=== PATIENT | female | born 1950 | race Caucasian/White ===

== ENCOUNTER → 2019-06-03 09:20 | Outpatient (CLI) | payer OTHER, MEDICARE, SELFPAY ==
--- NOTE | 2019-06-03 | DI.MG.S_ITS ---
BILATERAL DIGITAL SCREENING MAMMOGRAM 3D/2D WITH CAD: 06/03/2019 CLINICAL: Routine screening. Comparison is made to exams dated: 03/10/2018 mammogram - [facility], 05/22/2017 mammogram, and 11/03/2012 mammogram - [facility]. The tissue of both breasts is heterogeneously dense. This may lower the sensitivity of mammography. Current study was also evaluated with a Computer Aided Detection (CAD) system. There are benign calcifications in both breasts. No significant masses, calcifications, or other findings are seen in either breast. There has been no significant interval change. IMPRESSION: There is no mammographic evidence of malignancy. A 1 year screening mammogram is recommended. This exam was interpreted at Station ID: [id number]. NOTE: For mammograms, a report in lay terms will be sent to the patient. Approximately 15% of breast malignancies will not be visualized mammographically. In the management of a palpable breast mass, a negative mammogram must not discourage biopsy of a clinically suspicious lesion. Electronically Signed By: Hugh goodrich/ana:06/03/2019 11:55:49 letter sent: Normal Exam ACR BI-RADS Category 2: Benign Finding(s) 3342F
== END ==
PROVIDERS: PCP Student in an Organized Health Care Education/Training Program; Visit Provider Student in an Organized Health Care Education/Training Program
DX: Z12.31 Encounter for screening mammogram for malignant neoplasm of breast (principal)
CPT/HCPCS: 77063; 77067

== ENCOUNTER → 2019-06-04 10:26 | Outpatient (CLI) | payer OTHER, MEDICARE, SELFPAY ==
--- NOTE | 2019-06-04 | DI.RAD.S_ITS ---
PROCEDURE: XR CHEST 2V INDICATIONS: SHORTNESS OF BREATH TECHNIQUE: 2 views of the chest were acquired. COMPARISON: CR, CHEST 2VW, 05/11/2007, 11:41. FINDINGS: Surgical changes and devices: None. Lungs and pleura: Lungs are clear. No pleural effusions or pneumothorax. Mediastinum: Mediastinal contours are normal. Heart size is normal. Bones and chest wall: Mild dextroscoliosis centered at the midthoracic level. No suspicious bony abnormalities. Soft tissues appear unremarkable. IMPRESSION: No acute cardiopulmonary disease. Dictated by: Winston Caro [facility] Interpreted: Moi Rodriguez MD on 06/04/2019 at 11:04 Approved by: Moi Rodriguez M.D. on 06/04/2019 at 12:20
== END ==
PROVIDERS: PCP Student in an Organized Health Care Education/Training Program; Visit Provider Student in an Organized Health Care Education/Training Program
DX: R06.02 Shortness of breath (principal)
CPT/HCPCS: 71046

== ENCOUNTER → 2019-06-21 07:46 | Outpatient (CLI) | payer OTHER, MEDICARE, SELFPAY ==
--- NOTE | 2019-06-21 | DI.ECHO.S_ITS ---
[place]---------+ [facility] +---------+ : : [address] : : : : [id number] : : : : Phone: [phone]+ Echocardiogram Report + + :Name: LUZ MARIA SALAZAR Study Date: 06/21/2019 Height: 64 in : :[facility] Weight: 196 lb : : Gender: Female BSA: 1.9 m2 : :: 1950 Age: 68 yrs BP: 152/90 mmHg: :Reason For Study: Murmur : : Performed By: Elizabeth Delaney : :Referring: BELKIS GRAVES : + + Interpretation Summary Normal left ventricle size with ejection fraction 60-65%. Borderline left atrial enlargement. Mild aortic valve sclerosis. Mild aortic regurgitation. Mild mitral annular calcification. Mild mitral regurgitation. Procedure: A two-dimensional transthoracic echocardiogram with color flow and Doppler was performed. The study quality was technically adequate. There is no prior echocardiogram noted for this patient. The patient was in normal sinus rhythm during the exam. Left Ventricle: The left ventricle is normal in size, wall thickness, and systolic function without any focal wall motion abnormalities. The ejection fraction is estimated to be 60-65%. Diastolic parameters suggest probable normal left ventricular diastolic function and normal filling pressures. Right Ventricle: The right ventricle grossly appears normal in size with probable normal systolic function. Atria: Borderline left atrial enlargement. Right atrial size is normal. The interatrial septum is intact with no evidence for an atrial septal defect. Mitral Valve: The mitral valve leaflets appear borderline thickened, but open well. There is mild mitral annular calcification. There is mild mitral regurgitation. Aortic Valve: The aortic valve is trileaflet. The aortic valve opens well. There is mild aortic valve sclerosis. There is mild aortic regurgitation. Tricuspid Valve: The tricuspid valve is normal in structure and function. There is trace tricuspid regurgitation. Pulmonic Valve: The pulmonic valve is not well seen, but is grossly normal. There is trace pulmonic regurgitation. Great Vessels: The aortic root is normal size. The ascending aorta is at the upper limits of normal in size. The aortic arch is at the upper limits of normal in size. The IVC is of normal diameter and collapses greater than 50% with a sniff. This suggests a low right atrial pressure of 3 mm Hg. Pericardium/ Pleura There is no pericardial effusion. There is no pleural effusion. MMode/2D Measurements & Calculations LVIDd: 4.3 cm Ao root diam: 3.5 cm LVIDs: 2.5 cm Aortic Jxn: 2.8 cm FS: 42.8 % asc Aorta Diam: 3.6 cm EPSS: 0.36 cm Ao Arch Diam (Prox Trans): 3.1 cm IVSd: 0.94 cm LVPWd: 0.64 cm LV abrams. diameter/BSA (cm/m^2): 2.2 LV sys. diameter/BSA (cm/m^2): 1.3 LA dimension: 4.1 cm RA long axis: 5.4 cm LA A2 area: 21.3 cm2 RA area: 17.7 cm2 LA A4 area: 19.4 cm2 RA vol: 49.2 ml LA length (vol): 5.3 cm RA : 25.4 ml/m2 LA vol: 66.2 ml IVC diam: 1.8 cm LA vol index: 34.1 ml/m2 RVDd major: 5.8 cm RVD1 (basal): 3.3 cm RVD2 (mid): 2.5 cm Doppler Measurements & Calculations Ao V2 max: 180.1 cm/sec AI P1/2t: 547.6 msec Ao V2 mean: 119.3 cm/sec AI dec slope: 234.9 cm/sec2 Ao max P.0 mmHg Ao mean P.9 mmHg Ao V2 VTI: 45.0 cm MV E max dayron: 65.2 cm/sec TR max dayron: 256.1 cm/sec MV A max dayron: 74.0 cm/sec TR max P.2 mmHg MV E/A: 0.88 PA V2 max: 83.9 cm/sec Med Peak E' Dayron: 5.2 cm/sec PA V2 mean: 54.9 cm/sec E/E' med: 12.6 PA mean P.4 mmHg Lat Peak E' Dayron: 4.9 cm/sec PA Accel Time: 0.17 sec E/E' lat: 13.2 E/e' average: 12.9 MV dec time: 0.25 sec MV P1/2t: 76.1 msec MR ERO: 0.10 cm2 MV P1/2t max dayron: 65.8 cm/sec MR flow rate: 49.5 cm3/sec MVA(P1/2t): 2.9 cm2 MR PISA radius: 0.45 cm Electronically signed by: Nancy Bermudez on Reading Physician:06/21/2019 02:21 PM
== END ==
PROVIDERS: PCP Student in an Organized Health Care Education/Training Program; Visit Provider Student in an Organized Health Care Education/Training Program
DX: R01.1 Cardiac murmur, unspecified (principal)
CPT/HCPCS: 93306

== ENCOUNTER → 2020-09-11 06:52 | Outpatient (CLI) | payer MEDICARE, OTHER, SELFPAY ==
--- NOTE | 2020-09-11 | DI.ECHO.S_ITS ---
[facility]---------+ [facility] +---------+ : : [address] : [address] : : : : [id number] : : : : Phone: [phone] : : [phone] +[phone]+ Echocardiogram Report + + :Name: LUZ MARIA SALAZAR Study Date: 09/11/2020 Height: 63.5 in: :[facility] Weight: 172 lb : : Gender: Female BSA: 1.8 m2 : :: 1950 Age: 69 yrs BP: 152/91 mmHg: :Reason For Study: MURMUR : :Ordering Physician: THANIA, : :JIM Performed By: Emma Damon : :Referring: JIM MONTEIRO : + + Interpretation Summary The left ventricle is normal in size. The ejection fraction is estimated to be 65-70%. The right ventricle is normal in size and function. There is mild mitral regurgitation. Compared to the prior echo study, there has been no change in the severity of mitral regurgitation. There is mild aortic regurgitation. Compared to the prior echo study, there has been no change in the severity of aortic regurgitation. The ascending aorta is mildly enlarged. The IVC is of normal diameter and collapses greater than 50% with a sniff. This suggests a low right atrial pressure of 3 mm Hg. A patent foramen ovale is suspected. Procedure: A two-dimensional transthoracic echocardiogram with color flow and Doppler was performed. The study quality was technically adequate. Comparison is made with the echocardiogram of 06/21/2019. The patient was in sinus rhythm with heart rates between 61-66 bpm during the exam. Left Ventricle: The left ventricle is normal in size. Proximal septal thickening is noted. There is no echo evidence for significant left ventricular outflow tract obstruction. There is no thrombus. The ejection fraction is estimated to be 65-70%. There are no focal wall motion abnormalities. MV E/A: 0.93 Med Peak E' Dayron: 5.6 cm/sec E/E' med: 13.9. Right Ventricle: The right ventricle is normal in size and function. Atria: The left atrium is moderately dilated. The left atrium has mildly increased in size since the prior echo exam. The right atrium is mildly dilated. The right atrium has mildly increased in size since the prior echo exam. A patent foramen ovale is suspected. Doppler evidence suggests a left to right interatrial shunt. The interatrial septum bows toward right atrium consistent with elevated left atrial pressure. Mitral Valve: There is mild to moderate mitral annular calcification. There is mild mitral regurgitation. Compared to the prior echo study, there has been no change in the severity of mitral regurgitation. Aortic Valve: There is mild aortic valve sclerosis. The aortic valve is mildly calcified. There is no aortic valve stenosis. There is mild aortic regurgitation. Compared to the prior echo study, there has been no change in the severity of aortic regurgitation. Tricuspid Valve: The tricuspid valve is normal in structure and function. There is trace tricuspid regurgitation. Pulmonary artery pressures cannot be estimated because of the lack of a measurable TR jet velocity but the IVC suggests a CVP of around 3 mmHg. Pulmonic Valve: The pulmonic valve is not well seen, but is grossly normal. There is trace pulmonic regurgitation. Great Vessels: The aortic root is normal size. The ascending aorta is mildly enlarged. The IVC is of normal diameter and collapses greater than 50% with a sniff. This suggests a low right atrial pressure of 3 mm Hg. Pericardium/ Pleura There is no pericardial effusion. There is no pleural effusion. MMode/2D Measurements & Calculations LVIDd: 3.9 cm LVOT diam: 2.1 cm LVIDs: 2.5 cm Ao root diam: 3.4 cm FS: 36.4 % asc Aorta Diam: 3.8 cm EPSS: 0.38 cm Ao Arch Diam (Prox Trans): 2.8 cm IVSd: 1.1 cm LVPWd: 0.94 cm LV abrams. diameter/BSA (cm/m^2): 2.1 LV sys. diameter/BSA (cm/m^2): 1.4 LA A2 area: 25.2 cm2 RA long axis: 5.9 cm LA A4 area: 20.2 cm2 RA area: 20.7 cm2 LA length (vol): 5.4 cm RA vol: 62.1 ml LA vol: 80.7 ml RA : 34.1 ml/m2 LA vol index: 44.2 ml/m2 IVC diam: 2.0 cm RVD1 (basal): 3.5 cm TAPSE: 2.3 cm Doppler Measurements & Calculations Ao V2 max: 191.9 cm/sec LVOT Max Dayron: 106.5 cm/sec Ao V2 mean: 138.6 cm/sec LV V1 max P.5 mmHg Ao max P.7 mmHg LV V1 VTI: 26.8 cm Ao mean P.6 mmHg MIGUEL(I,D): 1.8 cm2 Ao V2 VTI: 50.6 cm MIGUEL(V,D): 1.9 cm2 sev ratio: 0.53 MIGUEL indexed to BSA (cm^2/m^2): 0.99 AI P1/2t: 550.5 msec AI dec slope: 237.0 cm/sec2 MV E max dayron: 77.3 cm/sec PA V2 max: 85.5 cm/sec MV A max dayron: 83.6 cm/sec PA V2 mean: 49.0 cm/sec MV E/A: 0.93 PA mean P.2 mmHg Med Peak E' Dayron: 5.6 cm/sec PA pr(Accel): 10.5 mmHg E/E' med: 13.9 Lat Peak E' Dayron: 7.7 cm/sec E/E' lat: 10.0 E/e' average: 11.9 MV dec time: 0.20 sec SV(LVOT): 91.8 ml Reading Physician:02:49 PM
[2020-09-11 08:51] LABS: Add Manual Diff / Slide Review NO; Basophils Absolute Auto 0 /uL (0-100); Basophils Percent Auto 0.7 % (0-2); Eosinophils Absolute Auto 100 /uL (0-450); Eosinophils Percent Auto 1.3 % (2-4); Hematocrit 38.9 % (36-46); Lymphocytes Absolute Auto 1300 /uL (1100-4500); Lymphocytes Percent Auto 21.2 % (25-40); Mean Corpuscular HGB Conc 33.3 % (30-36); Mean Corpuscular Hemoglobin 29.5 PG (26-34); Mean Corpuscular Volume 88.7 fL (80-100); Monocytes Absolute Auto 300 /uL (0-900); Monocytes Percent Auto 5.3 % (3-14); Neutrophils Absolute Auto 4500 /uL (1500-7000); Neutrophils Percent Auto 71.5 % (50-75); Platelet Count 221 X10^3/uL (150-400); Red Blood Cell Count 4.39 X10^6/uL (4.0-5.2); Red Cell Distribution Width 14.2 % (11.6-14.8); White Blood Cell Count 6.3 X10^3/uL (4.5-11.0)
[2020-09-11 09:12] LABS: Alanine Aminotransferase 15 IU/L (<35); Albumin 4.1 g/dL (3.5-5.0); Albumin Globulin Ratio 1.3 (1.0-2.8); Alkaline Phosphatase 118 U/L (38-126); Aspartate Aminotransferase 29 IU/L (14-36); BUN Creatinine Ratio 30.6 (6-22); Bilirubin Total 0.5 mg/dL (0.2-1.3); Blood Urea Nitrogen 19 mg/dL (7-17); Calcium 9.4 mg/dL (8.4-10.2); Carbon Dioxide 28 mmol/L (22-32); Chloride 106 mmol/L (98-107); Cholesterol 240 mg/dL (140-199); Estimated Glomerular Filt Rate > 60.0 mL/min (>60); Globulin 3.2 g/dL (1.7-4.1); Glucose 113 mg/dL (80-110); HDL Cholesterol 49 mg/dL (40-60); HEMOLYSIS 20 (0-50); LDL Cholesterol Calculated 163 mg/dL (<100); Potassium 3.8 mmol/L (3.4-5.1); Sodium 137 mmol/L (137-145); Total Protein 7.3 g/dL (6.3-8.2); Triglycerides 140 mg/dL (35-150)
[2020-09-11 10:15] LABS: Thyroid Stimulating Hormone 0.984 uIU/mL (0.47-4.68)
[2020-09-11 15:42] LABS: Hep C Virus Ab w/Reflex Quant NEGATIVE s/c (NEGATIVE)
== END ==
PROVIDERS: PCP Student in an Organized Health Care Education/Training Program; Referring Provider Student in an Organized Health Care Education/Training Program; Visit Provider Internal Medicine Cardiovascular Disease
DX: R01.1 Cardiac murmur, unspecified (principal); I10 Essential (primary) hypertension; E78.5 Hyperlipidemia, unspecified; R42 Dizziness and giddiness
CPT/HCPCS: 36415; 80053; 80061; 84443; 85025; 86803; 93306

== ENCOUNTER → 2021-03-14 12:46 | Outpatient (CLI) | payer MEDICARE, OTHER, SELFPAY | PROVIDERS: PCP Student in an Organized Health Care Education/Training Program; Referring Provider Student in an Organized Health Care Education/Training Program; Visit Provider Student in an Organized Health Care Education/Training Program | DX: M85.851 Other specified disorders of bone density and structure, right thigh; Z78.0 Asymptomatic menopausal state; Z82.62 Family history of osteoporosis | CPT/HCPCS: 77080 ==

== ENCOUNTER 2021-04-10 17:47 | Emergency (ER) | payer MEDICARE, OTHER, SELFPAY ==
[2021-04-10] VITALS (18 sets, daily range): BP systolic 165–213; BP diastolic 70–120; PULSE 42–67; RESP 9–27; TEMP 36.7; O2SAT 96–99; BMI 31.8
--- NOTE | 2021-04-10 18:07 | DI.RAD.S_ITS ---
PROCEDURE: XR CHEST 2V INDICATIONS: Shortness of breath TECHNIQUE: 2 views of the chest were acquired. COMPARISON: [facility], CR, XR CHEST 2V, 06/04/2019, 10:42. FINDINGS: Surgical changes and devices: None. Lungs and pleura: Lungs are clear. No pleural effusions or pneumothorax. Mediastinum: Mediastinal contours are normal. Heart size is normal. Bones and chest wall: No suspicious bony abnormalities. Soft tissues appear unremarkable. IMPRESSION: No acute cardiopulmonary process demonstrated radiographically. Dictated by: Jose Grant M.D. on 04/10/2021 at 18:30 Approved by: Jose Grant M.D. on 04/10/2021 at 18:30
[2021-04-10 18:42] LABS: Add Manual Diff / Slide Review NO; Basophils Absolute Auto 100 /uL (0-100); Basophils Percent Auto 0.9 % (0-2); Eosinophils Absolute Auto 100 /uL (0-450); Eosinophils Percent Auto 1.7 % (2-4); Hematocrit 41.1 % (36-46); Hemoglobin 13.8 g/dL (12.0-16.0); Lymphocytes Absolute Auto 2100 /uL (1100-4500); Lymphocytes Percent Auto 29.7 % (25-40); Mean Corpuscular HGB Conc 33.6 % (30-36); Mean Corpuscular Volume 86.1 fL (80-100); Monocytes Absolute Auto 400 /uL (0-900); Monocytes Percent Auto 5.9 % (3-14); Neutrophils Absolute Auto 4400 /uL (1500-7000); Neutrophils Percent Auto 61.8 % (50-75); Platelet Count 247 X10^3/uL (150-400); Red Blood Cell Count 4.77 X10^6/uL (4.0-5.2); Red Cell Distribution Width 13.9 % (11.6-14.8); White Blood Cell Count 7.1 X10^3/uL (4.5-11.0)
[2021-04-10 19:00] LABS: Alanine Aminotransferase 18 IU/L (<35); Albumin 4.4 g/dL (3.5-5.0); Albumin Globulin Ratio 1.4 (1.0-2.8); Alkaline Phosphatase 143 U/L (38-126); Aspartate Aminotransferase 32 IU/L (14-36); BUN Creatinine Ratio 20.9 (6-22); Bilirubin Total 0.3 mg/dL (0.2-1.3); Blood Urea Nitrogen 14 mg/dL (7-17); Calcium 9.7 mg/dL (8.4-10.2); Carbon Dioxide 28 mmol/L (22-32); Chloride 105 mmol/L (98-107); Estimated Glomerular Filt Rate > 60.0 mL/min (>60); Globulin 3.2 g/dL (1.7-4.1); Glucose 103 mg/dL (80-110); HEMOLYSIS < 15 (0-50); Lactate (Lactic Acid) 0.9 mmol/L (0.7-2.1); Potassium 3.8 mmol/L (3.4-5.1); Sodium 142 mmol/L (137-145); Total Protein 7.6 g/dL (6.3-8.2)
[2021-04-10 19:07] LABS: NT-proBNP (BNP-Adult 18+) 308 pg/mL (<125)
[2021-04-10 19:09] LABS: D Dimer < 200 ng/mL (<230)
--- NOTE | 2021-04-10 19:17 | ED.SOB ---
HPI - SOB/Dyspnea General Chief Complaint: Shortness of Breath/Dyspnea Stated Complaint: SOB, HIGH BP, DR Bella sent over Time Seen by Provider: 04/10/21 18:08 Source: patient Mode of arrival: Ambulatory Limitations: no limitations History of Present Illness HPI Narrative: The patient arrives with complaints of dyspnea, started about 3:00 p.m. today. She has had intermittent similar symptoms over the past year, she is under the care of Dr. Francisco, cardiology. She underwent ECHO less than 1 years ago with a normal ejection fraction, no significant abnormalities. She has undergone Holter monitor surveillance without significant findings. She arrives with the complaints of dyspnea, no associated chest pain or palpitations. She has no orthopnea. She has no dizziness, near syncopal episodes. 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 Symptoms are resolved while here in the ER. It is noted that she is on medications for hypertension, but she reports her blood pressure been quite labile. Normally at home she is 120-130 systolic. Her blood pressure goes high. She has 213 systolic on arrival. She denies headache, visual changes, or chest pain. There is no dyspnea at this time. Related Data Home Medications Medication Instructions Recorded Confirmed cyclosporine [Restasis] #0 08/19/17 multivitamin [Multiple Vitamins] 1 tab PO QDAY #0 08/19/17 triamcinolone acetonide 1 garrett TOPICAL #0 08/19/17 cholecalciferol (vitamin D3) 4,000 unit PO #0 01/09/18 [Vitamin D3] Previous Rx's Medication Instructions Recorded trospium 20 mg tablet 20 mg PO BID #60 tab-cap 11/23/18 Allergies Allergy/AdvReac Type Severity Reaction Status Date / Time meperidine [From DEMEROL] Allergy Unknown Verified 04/10/21 18:03 morphine [MORPHINE] Allergy Unknown Verified 04/10/21 18:03 Review of Systems Constitutional Constitutional: Denies chills, Denies fatigue and Denies fever(s) Eyes Eyes: Denies change in vision ENT Ears, Nose, Mouth, and Throat: Denies vertigo, Denies dizziness, Denies sinus pain and Denies sore throat Comments: No headache Cardiovascular Cardiovascular: Denies chest pain, Denies syncope, Denies pedal edema and Reports dyspnea Respiratory Respiratory: Denies chest congestion, Denies cough and Reports dyspnea Gastrointestinal Gastrointestinal: Denies abdominal pain, Denies change in bowel habits, Denies diarrhea, Denies nausea and Denies vomiting Musculoskeletal Musculoskeletal: Denies back pain and Denies arthralgias Comments: no edema Integumentary/Breasts Skin/Breast: Denies rash Neurologic Neurologic: Denies vertigo, Denies dizziness and Denies syncope Psychiatric Psychiatric: Denies anxiety Endocrine Endocrine: Denies fatigue Patient History Medical History (Updated 04/10/21 @ 22:20 by Hugh Morse MD) Hypertension Surgical History Status post dilation and curettage Social History Smoking Status: Unknown if ever smoked Smoking Status: Unknown if ever smoked alcohol intake frequency: holidays/special occasions only Substance Use Type: does not use Exam Initial Vital Signs Initial Vital Signs: Vital Signs Temperature 98.1 F 04/10/21 17:55 Pulse Rate 59 L 04/10/21 17:55 Respiratory Rate 15 04/10/21 17:55 Blood Pressure 213/93 H 04/10/21 17:55 Pulse Oximetry 97 04/10/21 17:55 Const General: cooperative, healthy appearing and comfortable [facility] Head: normocephalic and atraumatic Mouth: oral mucosae normal Eyes Pupils: PERRL EOM: EOM intact bilaterally Neck Neck: No JVD Resp Effort & Inspection: normal respiratory effort and able to speak in complete sentences Auscultation: clear to auscultation bilaterally, no rales, no rhonchi and no wheezes Cardio Rate: bradycardic Rhythm: regular rhythm Heart Sounds: S1 normal and S2 normal GI Inspection: non-distended Palpation: soft, no hepatosplenomegaly, No guarding, No pulsatile mass and No tender Auscultation: normal bowel sounds Back/Spine/Pelvis Back: normal to inspection Skin General: no rashes or lesions noted Neuro General: patient alert, patient oriented x3, gait normal and no focal motor deficits Speech: speech normal Extrem General: no pedal edema and no calf tenderness Psych Appearance: grossly normal and well kempt Course Course Course Narrative: the patient's blood pressure improved without intervention. I discussed her EKG with Cardiology, Dr. Hector. The frequent PVCs are noted. It is specifically noted there is no pathologic block. The PVCs may be associated with the beta-irma use. Follow-up with her shaker plate operator tomorrow as recommended. Orders Ordered: ED Orders 04/10/21 18:07 XR chest 2V Stat Measure peak expiratory flow ONCE RT Consult Eval and Treat Now 04/10/21 18:30 Complete Blood Count AUTO DIFF Stat Comprehensive Metabolic Panel Stat D Dimer Stat Lactate (Lactic Acid) Stat NT-proBNP (BNP-Adult 18+) Stat Troponin & CK Cardiac Panel Stat 04/10/21 20:17 EKG-12 Lead Stat Vital Signs Vital signs: Vital Signs - 8 hr 04/10/21 17:55 04/10/21 18:22 04/10/21 18:30 Temperature 98.1 F Pulse Rate 59 L 54 L 67 Respiratory Rate 15 23 Blood Pressure 213/93 H 203/119 H 200/120 H Pulse Oximetry 97 96 97 04/10/21 19:00 04/10/21 19:01 04/10/21 19:30 Temperature Pulse Rate 48 L 48 L 50 L Respiratory Rate 11 L 9 L 12 Blood Pressure 174/79 H Pulse Oximetry 99 98 98 04/10/21 19:31 04/10/21 20:00 04/10/21 20:01 Temperature Pulse Rate 58 L 50 L 57 L Respiratory Rate 22 13 19 Blood Pressure 165/76 H 179/79 H Pulse Oximetry 98 98 98 04/10/21 20:30 04/10/21 20:31 Temperature Pulse Rate 48 L 48 L Respiratory Rate 27 H 21 Blood Pressure 178/77 H Pulse Oximetry 98 98 MDM - SOB/Dyspnea Lab Data Result diagrams: 04/10/21 18:30 04/10/21 18:30 Labs: Lab Results 04/10/21 04/10/21 04/10/21 Range/Units 18:30 18:30 18:30 WBC 7.1 (4.5-11.0) X10^3/uL RBC 4.77 (4.0-5.2) X10^6/uL Hgb 13.8 (12.0-16.0) g/dL Hct 41.1 (36-46) % MCV 86.1 (80-100) fL MCH 29.0 (26-34) PG MCHC 33.6 (30-36) % RDW 13.9 (11.6-14.8) % Plt Count 247 (150-400) X10^3/uL Neut % (Auto) 61.8 (50-75) % Lymph % (Auto) 29.7 (25-40) % [place] % (Auto) 5.9 (3-14) % Eos % (Auto) 1.7 L (2-4) % Baso % (Auto) 0.9 (0-2) % Neut # (Auto) 4400 (1272-6567) /uL Lymph # (Auto) 2100 (0883-4648) /uL [place] # (Auto) 400 (0-900) /uL Eos # (Auto) 100 (0-450) /uL Baso # (Auto) 100 (0-100) /uL D-Dimer (<230) ng/mL Sodium 142 (137-145) mmol/L Potassium 3.8 (3.4-5.1) mmol/L Chloride 105 (98-107) mmol/L Carbon Dioxide 28 (22-32) mmol/L BUN 14 (7-17) mg/dL Creatinine 0.67 (0.52-1.04) mg/dL Estimated GFR > 60.0 (>60) mL/min BUN/Creatinine Ratio 20.9 (6-22) Glucose 103 (80-110) mg/dL Lactate 0.9 (0.7-2.1) mmol/L Calcium 9.7 (8.4-10.2) mg/dL Total Bilirubin 0.3 (0.2-1.3) mg/dL AST 32 (14-36) IU/L ALT 18 (<35) IU/L Alkaline Phosphatase 143 H (38-126) U/L Total Creatine Kinase (30-135) U/L CK-MB (CK-2) CK-MB (CK-2) Rel Index Troponin I (0.01-0.034) ng/mL NT-Pro-B Natriuret Pep (<125) pg/mL Total Protein 7.6 (6.3-8.2) g/dL Albumin 4.4 (3.5-5.0) g/dL Globulin 3.2 (1.7-4.1) g/dL Albumin/Globulin Ratio 1.4 (1.0-2.8) 04/10/21 04/10/21 04/10/21 Range/Units 18:30 18:30 18:30 WBC (4.5-11.0) X10^3/uL RBC (4.0-5.2) X10^6/uL Hgb (12.0-16.0) g/dL Hct (36-46) % MCV (80-100) fL MCH (26-34) PG MCHC (30-36) % RDW (11.6-14.8) % Plt Count (150-400) X10^3/uL Neut % (Auto) (50-75) % Lymph % (Auto) (25-40) % [place] % (Auto) (3-14) % Eos % (Auto) (2-4) % Baso % (Auto) (0-2) % Neut # (Auto) (1267-5296) /uL Lymph # (Auto) (8620-2308) /uL [place]ock[place] # (Auto) (0-900) /uL Eos # (Auto) (0-450) /uL Baso # (Auto) (0-100) /uL D-Dimer < 200 (<230) ng/mL Sodium (137-145) mmol/L Potassium (3.4-5.1) mmol/L Chloride (98-107) mmol/L Carbon Dioxide (22-32) mmol/L BUN (7-17) mg/dL Creatinine (0.52-1.04) mg/dL Estimated GFR (>60) mL/min BUN/Creatinine Ratio (6-22) Glucose (80-110) mg/dL Lactate (0.7-2.1) mmol/L Calcium (8.4-10.2) mg/dL Total Bilirubin (0.2-1.3) mg/dL AST (14-36) IU/L ALT (<35) IU/L Alkaline Phosphatase (38-126) U/L Total Creatine Kinase 65 (30-135) U/L CK-MB (CK-2) TNP CK-MB (CK-2) Rel Index TNP Troponin I < 0.012 (0.01-0.034) ng/mL NT-Pro-B Natriuret Pep 308 H (<125) pg/mL Total Protein (6.3-8.2) g/dL Albumin (3.5-5.0) g/dL Globulin (1.7-4.1) g/dL Albumin/Globulin Ratio (1.0-2.8) Imaging Data Chest x-ray: Radiologist's Impression: No acute findings. ECG Data Attestation: I personally reviewed and interpreted this ECG as follows: ( EKG 1. : Normal sinus rhythm with frequent PACs. Rate 61 beats per minute. Possible early. Normal intervals, no acute ST changes. EKG 2. Sinus bradycardia rate 54 with PACs. No significant change from EKG 1.) Discharge Plan Departure Patient Disposition: Home Clinical Impression: Bradycardia Hypertension Qualifiers: Hypertension type: essential hypertension Qualified Code(s): I10 - Essential (primary) hypertension Activity Restrictions/Additional Instructions: contact Dr. Francisco tomorrow regarding your symptoms today and your ER visit. Your blood pressure upon discharge was 165 systolic. your heart rate is in the 50s. He may want to further adjust to medications. Return to ER if you develop significant chest pain, problems breathing, dizziness, or headache. Prescriptions: No Action multivitamin [Multiple Vitamins] 1 EACH tablet 1 tab PO QDAY Qty: 0 RF: 0 triamcinolone acetonide 0.1 % ointment 1 garrett Topical Qty: 0 RF: 0 cyclosporine [Restasis] 1 EACH dropperette Qty: 0 RF: 0 cholecalciferol (vitamin D3) [Vitamin D3] 4,000 UNIT capsule 4,000 unit PO Qty: 0 RF: 0 trospium 20 mg tablet 20 mg PO BID Qty: 60 RF: 2 Referrals: Ashlie Bella MD [Primary Care Provider] -
[2021-04-10 19:37] LABS: Creatine Kinase 65 U/L (30-135)
[2021-04-10 19:49] LABS: Troponin I < 0.012 ng/mL (0.01-0.034)
== END 2021-04-10 22:47 | disposition home or self-care (01) ==
PROVIDERS: Emergency Provider Emergency Medicine; PCP Student in an Organized Health Care Education/Training Program
DX: R00.1 Bradycardia, unspecified (principal); I10 Essential (primary) hypertension; R06.02 Shortness of breath
CPT/HCPCS: 36415; 71046; 80053; 82550; 83605; 83880; 84484; 85025; 85379; 93005; 93010; 99284

== ENCOUNTER → 2021-05-08 16:53 | Outpatient (CLI) | payer MEDICARE, OTHER, SELFPAY ==
[2021-05-08 18:15] LABS: BUN Creatinine Ratio 31.7 (6-22); Blood Urea Nitrogen 20 mg/dL (7-17); Calcium 9.6 mg/dL (8.4-10.2); Carbon Dioxide 28 mmol/L (22-32); Chloride 105 mmol/L (98-107); Estimated Glomerular Filt Rate > 60.0 mL/min (>60); Glucose 103 mg/dL (80-110); HEMOLYSIS < 15 (0-50); Magnesium 2.1 mg/dL (1.6-2.3); Potassium 3.9 mmol/L (3.4-5.1); Sodium 140 mmol/L (137-145)
[2021-05-08 18:46] LABS: Thyroid Stimulating Hormone 0.812 uIU/mL (0.47-4.68)
== END ==
PROVIDERS: PCP Student in an Organized Health Care Education/Training Program; Referring Provider Internal Medicine Cardiovascular Disease; Visit Provider Internal Medicine Cardiovascular Disease
DX: I10 Essential (primary) hypertension (principal)
CPT/HCPCS: 36415; 80048; 83735; 84443

== ENCOUNTER → 2021-07-28 10:55 | Outpatient (CLI) | payer MEDICARE, OTHER, SELFPAY ==
--- NOTE | 2021-07-28 | DI.MG.S_ITS ---
BILATERAL DIGITAL SCREENING MAMMOGRAM 3D/2D WITH CAD: 07/28/2021 CLINICAL: Routine screening. Comparison is made to exams dated: 06/03/2019 mammogram, 03/10/2018 mammogram - [facility], and 05/22/2017 mammogram - [facility]. The tissue of both breasts is heterogeneously dense. This may lower the sensitivity of mammography. Current study was also evaluated with a Computer Aided Detection (CAD) system. There are benign calcifications in both breasts. No significant masses, calcifications, or other findings are seen in either breast. There has been no significant interval change. IMPRESSION: BENIGN There is no mammographic evidence of malignancy. A 1 year screening mammogram is recommended. This exam was interpreted at Station ID: [id number]. NOTE: For mammograms, a report in lay terms will be sent to the patient. Approximately 15% of breast malignancies will not be visualized mammographically. In the management of a palpable breast mass, a negative mammogram must not discourage biopsy of a clinically suspicious lesion. Electronically Signed By: Hugh goodrich/ana:07/30/2021 07:57:20 letter sent: Normal Exam ACR BI-RADS Category 2: Benign Finding(s) 3342F
== END ==
PROVIDERS: PCP Student in an Organized Health Care Education/Training Program; Referring Provider Student in an Organized Health Care Education/Training Program; Visit Provider Student in an Organized Health Care Education/Training Program
DX: Z12.31 Encounter for screening mammogram for malignant neoplasm of breast (principal)
CPT/HCPCS: 77063; 77067

== ENCOUNTER → 2021-08-15 13:39 | Outpatient (CLI) | payer MEDICARE, OTHER, SELFPAY ==
--- NOTE | 2021-08-15 | DI.ECHO.S_ITS ---
[facility] +---------+ : : [address] : [address] : : : : [phone] : : : : Phone: [phone]---------+ Echocardiogram Report + + :Name: LUZ MARIA SALAZAR Study Date: 08/15/2021 Height: 63 in : :[facility] ReadingLocation: Weight: 175 lb : : Gender: Female BSA: 1.8 m2 : :: 1950 Age: 70 yrs BP: 167/97 mmHg: :Reason For Study: ATRIOVENTIRUCLAR BLOCK, SECOND DEGREE : :Ordering Physician: Yemi GARCIAformed By: Emma Damon : :Referring: DANE GARCIA : + + Interpretation Summary The left ventricle is normal in size. The ejection fraction is estimated to be 70-75%. The left ventricle is mildly hyperdynamic. No significant LV outflow tract obstruction. There has been no significant change since the previous exam. The right ventricle is mildly dilated. The right ventricular systolic function is normal. There is a pacemaker lead in the right ventricle. Pacemaker lead is new. The aortic valve is moderately calcified. There is mildly reduced leaflet mobility. The peak aortic velocity is 2.4 m/sec. The aortic valve mean gradient is 12.5 mmHg. The peak aortic velocity on the previous exam was 2.14 m/sec. The calculated aortic valve area is 1.7 cm2. There is mild aortic stenosis. Procedure: A two-dimensional transthoracic echocardiogram with color flow and Doppler was performed. The study quality was technically adequate. Comparison is made with the echocardiogram of 04/13/2021. The patient has a paced rhythm. The heart rate ranged between 66-78 bpm during the study. Left Ventricle: The left ventricle is normal in size. Proximal septal thickening is noted. There is no echo evidence for significant left ventricular outflow tract obstruction. There is no thrombus. The ejection fraction is estimated to be 70-75%. The left ventricle is mildly hyperdynamic. There has been no significant change since the previous exam. Septal motion is consistent with conduction abnormality. MV E/A: 0.67 Med Peak E' Dayron: 5.1 cm/sec E/E' med: 12.8. Right Ventricle: The right ventricle is mildly dilated. There is a pacemaker lead in the right ventricle. The right ventricular systolic function is normal. Atria: The left atrium is mildly dilated. The left atrium has mildly increased in size since the prior echo exam. There is a catheter/pacemaker lead seen in the right atrium. The right atrium is normal in size. There is no Doppler evidence for an interatrial shunt. The atrial septum is aneurysmal. Mitral Valve: There is moderate mitral annular calcification. There is systolic anterior motion of the chordal apparatus. The mitral valve mean gradient is 2 mmHg. No significant mitral valve stenosis. There has been no significant change since the previous study. There is mild mitral regurgitation. Aortic Valve: The aortic valve is trileaflet. The aortic valve is moderately calcified. There is mildly reduced leaflet mobility. The peak aortic velocity is 2.4 m/sec. The aortic valve mean gradient is 12.5 mmHg. The calculated aortic valve area is 1.7 cm2. The peak aortic velocity on the previous exam was 2.14 m/sec. There is mild aortic stenosis. There is mild aortic regurgitation. Compared to the prior echo study, there has been no change in the severity of aortic regurgitation. Tricuspid Valve: The tricuspid valve is not well visualized, but is grossly normal. There is mild tricuspid regurgitation. Pulmonary artery pressures cannot be estimated because of the lack of a measurable TR jet velocity but the IVC suggests a CVP of around 3 mmHg. Compared to the prior echo exam, there has been no change in TR severity. Pulmonic Valve: The pulmonic valve leaflets are thin and pliable; valve motion is normal. There is trace pulmonic regurgitation. Great Vessels: The aortic root is normal size. The ascending aorta is at the upper limits of normal in size. Mild atherosclerotic plaque(s) in the aortic arch. The IVC is of normal diameter and collapses greater than 50% with a sniff. This suggests a low right atrial pressure of 3 mm Hg. Pericardium/ Pleura There is no pericardial effusion. There is no pleural effusion. MMode/2D Measurements & Calculations LVIDd: 4.8 cm LVOT diam: 2.2 cm LVIDs: 3.0 cm Ao root diam: 3.3 cm FS: 36.7 % asc Aorta Diam: 3.6 cm IVSd: 0.66 cm Ao Arch Diam (Prox Trans): 3.2 cm LVPWd: 0.83 cm LV abrams. diameter/BSA (cm/m^2): 2.6 LV sys. diameter/BSA (cm/m^2): 1.6 LA A2 area: 23.1 cm2 RA long axis: 5.0 cm LA A4 area: 17.0 cm2 RA area: 14.8 cm2 LA length (vol): 5.0 cm RA vol: 36.9 ml LA vol: 67.4 ml RA : 20.2 ml/m2 LA vol index: 36.9 ml/m2 IVC diam: 1.7 cm RVD1 (basal): 4.4 cm TAPSE: 2.3 cm Doppler Measurements & Calculations Ao V2 max: 242.7 cm/sec LVOT Max Dayron: 105.4 cm/sec Ao V2 mean: 168.7 cm/sec LV V1 max P.4 mmHg Ao max P.6 mmHg LV V1 VTI: 26.6 cm Ao mean P.5 mmHg MIGUEL(I,D): 1.9 cm2 Ao V2 VTI: 52.3 cm MIGUEL(V,D): 1.7 cm2 sev ratio: 0.51 MIGUEL indexed to BSA (cm^2/m^2): 1.1 AI P1/2t: 696.6 msec AI dec slope: 158.9 cm/sec2 MV E max dayron: 65.5 cm/sec PA V2 max: 106.5 cm/sec MV A max dayron: 97.3 cm/sec PA V2 mean: 73.5 cm/sec MV E/A: 0.67 PA mean P.4 mmHg Med Peak E' Dayron: 5.1 cm/sec PA pr(Accel): 36.2 mmHg E/E' med: 12.8 Lat Peak E' Dayron: 8.2 cm/sec E/E' lat: 8.0 E/e' average: 10.4 MV dec time: 0.28 sec MVA(VTI): 3.4 cm2 MV V2 mean: 65.4 cm/sec SV(LVOT): 101.2 ml MV mean P.0 mmHg MV V2 VTI: 30.1 cm Reading Physician:12:24 PM
== END ==
PROVIDERS: PCP Student in an Organized Health Care Education/Training Program; Referring Provider Internal Medicine Cardiovascular Disease; Visit Provider Internal Medicine Cardiovascular Disease
DX: I08.3 Combined rheumatic disorders of mitral, aortic and tricuspid valves (principal); I70.0 Atherosclerosis of aorta; I44.1 Atrioventricular block, second degree; Z95.0 Presence of cardiac pacemaker
CPT/HCPCS: 93306

== ENCOUNTER → 2022-11-14 09:54 | Outpatient (CLI) | payer MEDICARE, OTHER, SELFPAY ==
--- NOTE | 2022-11-14 | DI.MG.S_ITS ---
BILATERAL DIGITAL SCREENING MAMMOGRAM 3D/2D WITH CAD: 11/14/2022 CLINICAL: Routine screening. Comparison is made to exams dated: 07/28/2021 mammogram, 06/03/2019 mammogram, 03/10/2018 mammogram - [facility], 05/22/2017 mammogram, and 11/03/2012 mammogram - [facility]. Both breasts are heterogeneously dense, which may obscure small masses (category c / 51-75% glandular tissue). Current study was also evaluated with a Computer Aided Detection (CAD) system. There is a possible new asymmetry in the right breast at 10 o'clock middle depth. No other significant masses, calcifications, or other findings are seen in either breast. IMPRESSION: INCOMPLETE: NEEDS ADDITIONAL IMAGING EVALUATION The possible new asymmetry in the right breast is indeterminate. Additional views with possible ultrasound are recommended. Based on the Tyrer Cuzick model (a risk assessment model) the patient's lifetime risk is 6.7% and her 10 year risk is 5.0%. According to the ACR, ACS, and NCCN guidelines, an annual breast MRI exam along with mammogram is recommended if the patient's lifetime risk is 20% or greater. This exam was interpreted at Station ID: [id number]. NOTE: For mammograms, a report in lay terms will be sent to the patient. Approximately 15% of breast malignancies will not be visualized mammographically. In the management of a palpable breast mass, a negative mammogram must not discourage biopsy of a clinically suspicious lesion. Electronically Signed By: Jose Grant M.D., jr/ana:11/14/2022 13:38:17 letter sent: Additional Imaging Needed ACR BI-RADS Category 0: Incomplete 3340F
--- NOTE | 2022-11-14 | DI.US.S_ITS ---
PROCEDURE: US ABDOMEN COMPLETE INDICATIONS: Abnormal levels of other serum enzymes TECHNIQUE: Real-time scanning was performed of the abdominal and retroperitoneal organs, with image documentation. COMPARISON: None. FINDINGS: Liver: The liver is normal in size and demonstrates no suspicious lesions. There is an 11 mm anechoic, benign-appearing hepatic cyst seen within the left lobe of the liver. Gallbladder: No findings of gallstones or sludge are seen. The gallbladder wall is not thickened, measuring 3 mm or less. No specific pericholecystic fluid is seen. The sonographic Roldan sign is negative. Biliary ducts: Intrahepatic bile ducts are non-dilated. Extrahepatic bile duct caliber measures 5 mm. Normal is 6-7 mm or less in diameter, or 10 mm or less post-cholecystectomy. Pancreas: Visualized portions of the pancreas are sonographically normal. Spleen: Spleen is normal in size and homogeneous in echotexture. Kidneys: Kidneys are normal in size and echotexture. Right kidney measures 9.6 cm long; left kidney measures 9.4 cm long. No hydronephrosis or nephrolithiasis. No solid masses. Aorta: Visualized aorta is normal in caliber at less than 3 cm. Iliacs: Proximal common iliac arteries are normal in caliber at less than 2.5 cm. IVC: Intrahepatic inferior vena cava is patent. Miscellaneous: No free abdominal fluid. IMPRESSION: Normal appearing liver, with incidental note made an 11 mm anechoic cyst on the left. The gallbladder demonstrates a normal sonographic appearance. No biliary dilatation is seen. Dictated by: Rik Sanders M.D. on 11/14/2022 at 16:29 Approved by: Rik Sanders M.D. on 11/14/2022 at 16:30
== END ==
PROVIDERS: PCP Family Medicine; Referring Provider Internal Medicine; Visit Provider Internal Medicine
DX: Z12.31 Encounter for screening mammogram for malignant neoplasm of breast (principal); R74.8 Abnormal levels of other serum enzymes; K76.89 Other specified diseases of liver
CPT/HCPCS: 76700; 77063; 77067

== ENCOUNTER → 2022-12-10 08:47 | Outpatient (CLI) | payer MEDICARE, OTHER, SELFPAY ==
--- NOTE | 2022-12-10 | DI.MG.S_ITS ---
UNILATERAL RIGHT DIGITAL DIAGNOSTIC MAMMOGRAM 3D/2D WITH ADDITIONAL VIEWS: 12/10/2022 CLINICAL: Additional evaluation requested from prior study. Comparison is made to exams dated: 11/14/2022 mammogram, 07/28/2021 mammogram, and 06/03/2019 mammogram - . The right breast is heterogeneously dense, which may obscure small masses (category c / 51-75% glandular tissue). The previously described possible asymmetry in the right breast at 10 o'clock middle depth is no longer seen and most likely is fibroglandular tissue. This is not seen in additional views and is consistent with summation artifact. No other significant masses or calcifications are seen in the breast. IMPRESSION: BENIGN The previously described asymmetry disperses with additional views and is consistent with summation artifact. There is no mammographic evidence of malignancy. A 1 year screening mammogram is recommended. Findings and recommendations were conveyed to the patient during today's evaluation. Based on the Tyrer Cuzick model (a risk assessment model) the patient's lifetime risk is 6.7% and her 10 year risk is 5.0%. According to the ACR, ACS, and NCCN guidelines, an annual breast MRI exam along with mammogram is recommended if the patient's lifetime risk is 20% or greater. This exam was interpreted at Station ID: [id number]. NOTE: For mammograms, a report in lay terms will be sent to the patient. Approximately 15% of breast malignancies will not be visualized mammographically. In the management of a palpable breast mass, a negative mammogram must not discourage biopsy of a clinically suspicious lesion. Electronically Signed By: Hugh Powell M.D. aty/:12/10/2022 09:29:32 letter sent: Normal Exam ACR BI-RADS Category 2: Benign Finding(s) 3342F
== END ==
PROVIDERS: PCP Family Medicine; Referring Provider Family Medicine; Visit Provider Family Medicine
DX: R92.8 Other abnormal and inconclusive findings on diagnostic imaging of breast (principal)
CPT/HCPCS: 77065; G0279

== ENCOUNTER → 2023-03-12 08:47 | Outpatient (CLI) | payer MEDICARE, OTHER, SELFPAY ==
--- NOTE | 2023-03-12 | DI.US.S_ITS ---
PROCEDURE: US ABDOMEN LIMITED INDICATIONS: ELEVATED LIVER ENZYMES TECHNIQUE: Real-time focused scanning was performed of the abdomen, with image documentation. COMPARISON: [facility], US, US ABDOMEN COMPLETE, 11/14/2022, 10:14. FINDINGS: The liver is normal in size and demonstrates no suspicious lesions. There is a stable of an mm left liver cyst incidentally noted. No findings of gallstones or sludge are seen. The gallbladder wall is not thickened, measuring 3 mm or less. No specific pericholecystic fluid is seen. The sonographic Roldan sign is negative. There is no biliary dilatation, the common bile duct measures 6 mm. No significant pancreatic abnormality is seen on these images. IMPRESSION: No significant liver abnormality is seen by ultrasound. Additional findings: 11 mm left liver cyst, stable Dictated by: Rik Sanders M.D. on 03/12/2023 at 12:15 Approved by: Rik Sanders M.D. on 03/12/2023 at 12:16
== END ==
PROVIDERS: PCP Family Medicine; Referring Provider Family Medicine; Visit Provider Family Medicine
DX: R74.8 Abnormal levels of other serum enzymes (principal); K76.89 Other specified diseases of liver
CPT/HCPCS: 76705

== ENCOUNTER → 2023-06-20 08:57 | Outpatient (CLI) | payer MEDICARE, OTHER, SELFPAY ==
--- NOTE | 2023-06-20 08:58 | DI.ECHO.S_ITS ---
[facility]---------+ [facility] +---------+ : : [address] : [address] : : : : [phone] : : : : Phone: [phone]---------+ Echocardiogram Report + + :Name: LUZ MARIA SALAZAR Study Date: 06/20/2023 Height: 62 in : :[facility] ReadingLocation: Weight: 169 lb : : Gender: Female BSA: 1.8 m2 : :: 1950 Age: 72 yrs BP: 157/92 mmHg: :Reason For Study: Other Forms of Dyspnea : :Ordering Physician: THANIA, : :JIM Performed By: Shayla Gamboa : :Referring: JIM MONTEIRO : + + Interpretation Summary The left ventricle is normal in size. The left ventricle is hyperdynamic. The ejection fraction is estimated to be 70-75%. This is unchanged compared to the previous study. The right ventricle is normal in size and function. There is a pacemaker lead in the right ventricle. There is mild to moderate mitral regurgitation. Compared to the prior echo study, there has been an increase in the severity of mitral regurgitation. The aortic valve is moderately calcified. There is mildly reduced leaflet mobility. The peak aortic velocity is 2.67 m/sec. The aortic valve mean gradient is 17 mmHg. The peak aortic velocity on the previous exam was 2.4 m/sec. There is mild aortic stenosis. There is mild to moderate aortic regurgitation. Compared to the prior echo study, there has been an increase in the severity of aortic regurgitation. There is mild tricuspid regurgitation. Compared to the prior echo exam, there has been no change in TR severity. The right ventricular systolic pressure is estimated to be at least 24 mmHg based on an estimated right atrial pressure of 3 mm Hg. Procedure: A two-dimensional transthoracic echocardiogram with color flow and Doppler was performed. The study quality was technically adequate. Comparison is made with the echocardiogram of 08/15/2021. The patient was in normal sinus rhythm during the exam. Left Ventricle: The left ventricle is normal in size. Proximal septal thickening is noted. There is no echo evidence for significant left ventricular outflow tract obstruction. There is no thrombus. The ejection fraction is estimated to be 70-75%. The left ventricle is hyperdynamic. This is unchanged compared to the previous study. There are no focal wall motion abnormalities. MV E/A: 0.70 Med Peak E' Dayron: 5.7 cm/sec E/E' med: 13.3. Right Ventricle: The right ventricle is normal in size and function. There is a pacemaker lead in the right ventricle. Atria: The left atrium is moderately dilated. The left atrium has mildly increased in size since the prior echo exam. Right atrial size is normal. The atrial septum is aneurysmal. There is no Doppler evidence for an interatrial shunt. Mitral Valve: There is moderate mitral annular calcification. There is systolic anterior motion of the chordal apparatus. The mitral valve mean gradient is 2 mmHg. There is mild to moderate mitral regurgitation. Compared to the prior echo study, there has been an increase in the severity of mitral regurgitation. Aortic Valve: The aortic valve is trileaflet. The aortic valve is moderately calcified. There is mildly reduced leaflet mobility. There is mild aortic stenosis. The peak aortic velocity is 2.67 m/sec. The aortic valve mean gradient is 17 mmHg. The peak aortic velocity on the previous exam was 2.4 m/sec. There is mild to moderate aortic regurgitation. Compared to the prior echo study, there has been an increase in the severity of aortic regurgitation. Tricuspid Valve: The tricuspid valve is normal. There is no tricuspid stenosis. There is mild tricuspid regurgitation. The right ventricular systolic pressure is estimated to be at least 24 mmHg based on an estimated right atrial pressure of 3 mm Hg. Compared to the prior echo exam, there has been no change in TR severity. Pulmonic Valve: The pulmonic valve leaflets are thin and pliable; valve motion is normal. There is no pulmonic valvular stenosis. There is trace pulmonic regurgitation. Great Vessels: The aortic root is normal size. The ascending aorta is at the upper limits of normal in size. The pulmonary artery is normal size. The IVC is of normal diameter and collapses greater than 50% with a sniff. This suggests a low right atrial pressure of 3 mm Hg. Pericardium/ Pleura There is no pericardial effusion. There is no pleural effusion. MMode/2D Measurements & Calculations LVIDd: 4.0 cm LVOT diam: 1.9 cm LVIDs: 1.7 cm Ao root diam: 3.2 cm FS: 57.5 % asc Aorta Diam: 3.8 cm IVSd: 1.1 cm LVPWd: 1.1 cm LV abrams. diameter/BSA (cm/m^2): 2.2 LV sys. diameter/BSA (cm/m^2): 0.96 LA A2 area: 20.8 cm2 RA long axis: 5.3 cm LA A4 area: 19.6 cm2 RA area: 13.8 cm2 LA length (vol): 5.8 cm RA vol: 30.6 ml LA vol: 59.8 ml RA : 17.2 ml/m2 LA vol index: 33.6 ml/m2 RVD1 (basal): 3.6 cm LVLs ap4: 5.5 cm LVLd ap2: 7.3 cm TAPSE_phl: 1.9 cm LVLs ap2: 5.6 cm Doppler Measurements & Calculations Ao V2 max: 266.2 cm/sec LVOT Max Dayron: 124.5 cm/sec Ao V2 mean: 195.4 cm/sec LV V1 max P.2 mmHg Ao max P.0 mmHg LV V1 VTI: 31.0 cm Ao mean P.0 mmHg MIGUEL(I,D): 1.4 cm2 Ao V2 VTI: 64.4 cm MIGUEL(V,D): 1.3 cm2 sev ratio: 0.48 MIGUEL indexed to BSA (cm^2/m^2): 0.77 MV E max dayron: 75.4 cm/sec TR max dayron: 227.4 cm/sec MV A max dayron: 107.0 cm/sec TR max P.8 mmHg MV E/A: 0.70 PA V2 max: 99.7 cm/sec Med Peak E' Dayron: 5.7 cm/sec PA V2 mean: 71.9 cm/sec E/E' med: 13.3 PA mean P.0 mmHg Lat Peak E' Dayron: 8.4 cm/sec PA pr(Accel): 14.6 mmHg E/E' lat: 8.9 E/e' average: 11.1 MV dec time: 0.26 sec MVA(VTI): 2.5 cm2 MV V2 mean: 69.9 cm/sec SV(LVOT): 87.9 ml MV mean P.0 mmHg MV V2 VTI: 35.4 cm AV VR_phl: 0.47 MIGUEL(VTI)/BSA_phl: 0.77 Reading Physician:02:34 PM
== END ==
PROVIDERS: PCP Family Medicine; Referring Provider Internal Medicine Cardiovascular Disease; Visit Provider Internal Medicine Cardiovascular Disease
DX: I08.3 Combined rheumatic disorders of mitral, aortic and tricuspid valves (principal); R06.09 Other forms of dyspnea
CPT/HCPCS: 93306

== ENCOUNTER → 2023-12-15 14:41 | Outpatient (CLI) | payer MEDICARE, OTHER, SELFPAY ==
--- NOTE | 2023-12-15 14:44 | DI.MG.S_ITS ---
BILATERAL DIGITAL SCREENING MAMMOGRAM 3D/2D WITH CAD: 12/15/2023 CLINICAL: Routine screening. Comparison is made to exams dated: 12/10/2022 mammogram, 11/14/2022 mammogram, 07/28/2021 mammogram, and 06/03/2019 mammogram - [facility]. Both breasts are heterogeneously dense, which may obscure small masses (category c / 51-75% glandular tissue). Current study was also evaluated with a Computer Aided Detection (CAD) system. No significant masses, calcifications, or other findings are seen in either breast. There has been no significant interval change. IMPRESSION: NEGATIVE There is no mammographic evidence of malignancy. A 1 year screening mammogram is recommended. Based on the Tyrer Cuzick model (a risk assessment model) the patient's lifetime risk is 6.3% and her 10 year risk is 5.1%. According to the ACR, ACS, and NCCN guidelines, an annual breast MRI exam along with mammogram is recommended if the patient's lifetime risk is 20% or greater. This exam was interpreted at Station ID: [id number]. NOTE: For mammograms, a report in lay terms will be sent to the patient. Approximately 15% of breast malignancies will not be visualized mammographically. In the management of a palpable breast mass, a negative mammogram must not discourage biopsy of a clinically suspicious lesion. Electronically Signed By: Yolie Yates M.D., PH.D marie/ana:12/16/2023 17:25:47 letter sent: Normal Exam ACR BI-RADS Category 1: Negative 3341F
--- NOTE | 2023-12-15 14:44 | DI.RAD.S_ITS ---
Bone Density Report Name: LUZ MARIA SALAZAR Age: 72 Sex: Female Ethnicity: White Date of : 1950 Indication: osteopenia; Referring Provider: GUDELIA WOODWARD Study: Bone densitometry was performed. Exam Date: December 15, 2023 Accession number: [id number] Bone Density: Region BMD T-score Z-score Classification AP Spine(L1-L4) 0.866 -1.6 0.7 Osteopenia Femoral Neck (Left) 0.539 -2.8 -0.8 Osteoporosis Total Hip (Left) 0.614 -2.7 -1.0 Osteoporosis Femoral Neck (Right) 0.560 -2.6 -0.6 Osteoporosis Total Hip (Right) 0.637 -2.5 -0.8 Osteoporosis Total Hip Mean 0.626 -2.6 -0.9 Osteoporosis World Health Organization criteria for BMD impression classify patients as: Normal (T-score at or above -1.0), Osteopenia (T-score between -1.0 and -2.5), or Osteoporosis (T-score at or below -2.5). 10-year Fracture Risk: FRAX not reported because: Some T-score for Spine Total or Hip Total or Femoral Neck at or below -2.5 Previous Exams: -- Region Exam Age BMD T-score BMD Change BMD Change Date g/cm2 vs Baseline vs Previous -- AP Spine (L1-L4) 12/15/2023 72 0.866 -1.6 -0.017 (-2.0%)# -0.017 (-2.0%)# 03/14/2021 70 0.883 -1.5 Total Hip(Left) 12/15/2023 72 0.614 -2.7 -0.065 (-9.6%)# -0.065 (-9.6%)# 03/14/2021 70 0.680 -2.2 Total Hip(Right) 12/15/2023 72 0.637 -2.5 -0.015 (-2.2%)# -0.015 (-2.2%)# 03/14/2021 70 0.652 -2.4 -- *Denotes significance at 95% confidence level, LSC for AP Spine = 0.022 g/cm2, LSC for Total Hip = 0.027 g/cm2 # Denotes dissimilar scan types or analysis methods Impression: The patient has osteoporosis, based on the Left Femoral Neck T-score. No significant bone loss was observed. Discussion: INCREASED RISK OF FRACTURE. BONE DENSITY IS UNDESIRABLY LOW AT ONE OR MORE SKELETAL SITES, CONSISTENT WITH POSTMENOPAUSAL OSTEOPOROSIS. This patient's lowest T-score meets the World Health Organization's (WHO) criteria for osteoporosis at one or more sites (T-score -2.5 or below). In untreated patients, the risk of osteoporotic fracture increases approximately two-fold for each 1.0 SD decrease in T-score. Low bone density is not the only risk factor for fracture; also consider factors such as patient's age, frailty or poor health, risk of falling, risk of injury, previous osteoporotic fracture, family history of osteoporosis, cigarette smoking, low body weight, etc. Not everyone with low bone mineral density has osteoporosis; osteomalacia and other metabolic bone disorders should also be considered. Patients who have osteoporosis should be evaluated for specific diseases and conditions (secondary causes) that may cause or contribute to bone loss. The [place] [employer] Endocrinologists (AACE) and National Osteoporosis Foundation (NOF) recommend pharmacologic intervention for all postmenopausal women whose T-score is in this range. The patient should follow a healthful lifestyle (good nutrition with adequate calcium and vitamin D, and appropriate weight-bearing exercise). Follow-Up: Consider a repeat BMD and Vertebral Fracture Assessment (VFA) exam in 2 years or sooner if medically necessary, to reassess this patient's status. Reported by: AMANDA ALTMAN MD on 12/15/2023 3:53:00 PM.
== END ==
PROVIDERS: PCP Family Medicine; Referring Provider Family Medicine; Visit Provider Family Medicine
DX: R92.333 Mammographic heterogeneous density, bilateral breasts (principal); Z12.31 Encounter for screening mammogram for malignant neoplasm of breast; M81.0 Age-related osteoporosis without current pathological fracture
CPT/HCPCS: 77063; 77067; 77080

== ENCOUNTER → 2024-03-11 14:54 | Outpatient (CLI) | payer MEDICARE, OTHER, SELFPAY ==
--- NOTE | 2024-03-11 | DI.US.S_ITS ---
PROCEDURE: US ABDOMEN LIMITED INDICATIONS: HEPATIC CYST TECHNIQUE: Real-time scanning was performed of the abdominal and retroperitoneal organs, with image documentation. COMPARISON: [facility], , US ABDOMEN LIMITED, 03/12/2023, 8:54. FINDINGS: Liver: Liver is normal in size and homogeneous in echotexture. Redemonstration of simple left hepatic lobe cyst measuring 0.9 x 0.4 x 1.0 cm, previously 0.6 x 0.5 x 1.1 cm. Gallbladder: Gallbladder is normal in sonographic appearance without gallstones, gallbladder wall thickening, pericholecystic fluid, or abnormal sonographic Roldan's. Biliary ducts: Intrahepatic bile ducts are non-dilated. Extrahepatic bile duct caliber measures 6 mm. Normal is 6-7 mm or less in diameter, or 10 mm or less post-cholecystectomy. Pancreas: Visualized portions of the pancreas are sonographically normal. Miscellaneous: No free abdominal fluid. IMPRESSION: Left hepatic lobe simple cyst not significantly changed in size. It measures approximately 10 mm today versus 11 mm previously. Dictated by: Hugh Powell M.D. on 03/12/2024 at 10:24 Approved by: Hugh Powell M.D. on 03/12/2024 at 10:25
== END ==
PROVIDERS: PCP Family Medicine; Referring Provider Family Medicine; Visit Provider Family Medicine
DX: K76.89 Other specified diseases of liver (principal)
CPT/HCPCS: 76705

== ENCOUNTER 2024-05-21 08:05 | Day surgery (SDC) | payer MEDICARE, OTHER, SELFPAY ==
[2024-05-21] MEDS: LACTATED RINGERS 1,000 ML 42 ML IV (09:19)
[2024-05-21 09:24] VITALS: BP 154/80; PULSE 79; RESP 16; TEMP 36.6; O2SAT 99
--- NOTE | 2024-05-21 09:45 | PM.HP.1 ---
History of Present Illness History of Present Illness Date Patient Seen: 05/21/24 Time Patient Seen: 09:45 Chief complaint: [facility] [place] Narrative: H/o colon polyps with last scope being 5 years ago. No symptoms [facility] Medical History Hypertension Surgical History Status post dilation and curettage Social History Smoking Status: Unknown if ever smoked Meds Home Medications and Allergies Home Medications Medication Instructions Recorded Confirmed Type cyclosporine 0.05 % eye drops in a ##0 08/19/17 History dropperette (Restasis) multivitamin (Multiple Vitamins 1 tab PO QDAY ##0 08/19/17 History tablet) triamcinolone acetonide 0.1 % 1 garrett topical ##0 08/19/17 History topical ointment cholecalciferol (vitamin D3) 100 4,000 unit PO ##0 01/09/18 History mcg (4,000 unit) capsule (Vitamin D3) trospium 20 mg tablet 20 mg PO BID OAB #60 tab-caps 11/23/18 Rx amlodipine 5 mg tablet 5 mg PO DAILY 05/21/24 05/21/24 History atenolol 25 mg tablet 50 mg PO BID 05/21/24 05/21/24 History Allergies Allergy/AdvReac Type Severity Reaction Status Date / Time meperidine [From DEMEROL] Allergy Unknown Verified 05/21/24 08:39 morphine [MORPHINE] Allergy Unknown Verified 05/21/24 08:39 Review of Systems Review of Systems ROS: Yes All systems reviewed with the patient and are negative except as otherwise documented Exam Vital Signs (past 8 hours): - 05/21/24 09:24 Temperature 97.8 F Pulse Rate 79 Respiratory Rate 16 Blood Pressure 154/80 H Pulse Oximetry 99 Oxygen Delivery Method Room Air Oxygen Delivery Method Room Air Const General: cooperative, healthy appearing and comfortable [facility] Head: normocephalic and atraumatic Ears: hearing grossly normal bilaterally Eyes General: appearance normal, both eyes and all related structures Sclera: sclerae normal Neck Neck: trachea midline Resp Effort & Inspection: normal respiratory effort Cardio Rate: regular rate Rhythm: regular rhythm GI Inspection: non-distended Palpation: No tender Skin General: atrophy Neuro General: patient alert, patient awake and patient oriented x3 Cognition: normal cognition Psych Mental Status: mental status grossly normal Judgment: judgment good Assessment & Plan Assessment & Plan narrative: h/o colon polyps Colonoscopy with anesthesia Time-Based Coding :: [TOTAL MINUTES] spent with patient and on the chart (including review of chart, obtaining history, exam, reviewing outside data, placing orders, documenting exam and treatment plan, and counseling patient) on [DATE].
--- NOTE | 2024-05-21 10:06 | PM.OP.COLON ---
Operative Date/Time/Diagnoses Date of procedure: 05/21/24 Time of procedure: 10:06 Pre-op diagnosis: History of colon polyps Post-op diagnosis: same Procedure & Clinicians Study performed: Colonoscopy with anesthesia Same procedure as scheduled: Yes Indications: History of colon polyps Surgeon: Silke Jackson Procedure Notes Procedure in detail: Preop diagnosis: History of colon polyps Postop diagnosis: Same Operative procedure: Colonoscopy with anesthesia Surgeon: Venessa Jackson MD Findings: No polyps identified. Scant diverticulosis. Grade 2 hemorrhoids internal Procedure: Patient placed in a lateral position. Rectal exam performed showing normal tone no masses. Colonoscope was inserted into the rectum and advanced to ileocecal valve with minimal difficulty. Insufflation extraction scope and the above findings. Retroflex was included in the rectum as well as the cecum Impression: No polyps identified. Scant small diverticuli. Plan: Repeat colonoscopy in 5 years unless otherwise indicated by change in clinical condition Findings: divertiulosis Post-procedure Recommendations: Colonoscopy in 5 years Follow up: as needed Disposition: PACU
[2024-05-21 10:10] VITALS: BP 108/55; PULSE 64; RESP 18; TEMP 36.1; O2SAT 94
[2024-05-21 10:15] VITALS: BP 100/61; PULSE 64; RESP 20; O2SAT 96
[2024-05-21 10:20] VITALS: BP 117/61; PULSE 64; RESP 98; O2SAT 19
== END 2024-05-21 10:26 | disposition home or self-care (01) ==
PROVIDERS: PCP Family Medicine; Referring Provider Surgery; Visit Provider Surgery
PROC: 0DJD8ZZ Inspection of Lower Intestinal Tract, Via Natural or Artificial Opening Endoscopic (ICD-10-PCS; CPT 45378; principal; 2024-05-21 09:15)
DX: Z12.11 Encounter for screening for malignant neoplasm of colon (principal); Z86.010 Personal history of colon polyps; K57.30 Diverticulosis of large intestine without perforation or abscess without bleeding; K64.1 Second degree hemorrhoids
CPT/HCPCS: G0105; J2704

== ENCOUNTER → 2024-06-07 08:55 | Outpatient (CLI) | payer MEDICARE, OTHER, SELFPAY ==
--- NOTE | 2024-06-07 08:56 | DI.ECHO.S_ITS ---
[place] +---------+ Hospital : : [id number] : : [place] [address] : : [id number] : : Phone: [phone] Echocardiogram Report + + :Name: LUZ MARIA SALAZAR Study Date: 06/07/2024 Height: 62 in : :Hospital ReadingLocation: Weight: 175 lb : : Gender: Female BSA: 1.8 m2 : :: 1950 Age: 73 yrs BP: 166/101 mmHg: :Reason For Study: ATRIAL FIBRILLATION : :Ordering Physician: THANIA, : :JIM Performed By: Jose Pena : :Referring: JIM MONTEIRO : + + Interpretation Summary The left ventricle is normal in size. The ejection fraction is estimated to be 65-70%. MV E/A: 0.68 Med Peak E' Dayron: 3.6 cm/sec E/E' med: 22.8 The right ventricle is normal in size, thickness and function. There is a pacemaker lead in the right ventricle. There is moderate mitral annular calcification. There is mild to moderate mitral regurgitation. Compared to the prior echo study, there has been no change in the severity of mitral regurgitation. The aortic valve is trileaflet. The aortic valve is moderately calcified. There is mild to moderately reduced leaflet mobility. The peak aortic velocity is 3.05 m/sec. The aortic valve mean gradient is 19.6 mmHg. The calculated aortic valve area is 1.4 cm2. There is mild to moderate aortic stenosis. The peak aortic velocity on the previous exam was 2.67 m/sec. Compared to the prior echo study, there has been an increase in the severity of aortic stenosis. There is mild to moderate aortic regurgitation. Compared to the prior echo study, there has been no change in the severity of aortic regurgitation. There is mild tricuspid regurgitation. Compared to the prior echo exam, there has been no change in TR severity. The right ventricular systolic pressure is estimated to be at least 37. mmHg based on an estimated right atrial pressure of 8 mm Hg. Compared to the prior echo exam, there has been an increase in the severity of pulmonary hypertension. Procedure: A two-dimensional transthoracic echocardiogram with color flow and Doppler was performed. The study quality was technically adequate. Comparison is made with the echocardiogram of 06/20/2023. The heart rate ranged between 61-72 bpm during the study. The patient has a paced rhythm. Left Ventricle: The left ventricle is normal in size. There is mild concentric left ventricular hypertrophy. Proximal septal thickening is noted. There is no echo evidence for significant left ventricular outflow tract obstruction. There is no thrombus. The ejection fraction is estimated to be 65-70%. There are no focal wall motion abnormalities. MV E/A: 0.68 Med Peak E' Dayron: 3.6 cm/sec E/E' med: 22.8. Right Ventricle: The right ventricle is normal in size, thickness and function. There is a pacemaker lead in the right ventricle. The right ventricular systolic function is normal. Atria: The left atrium is moderately dilated. There has been no significant change since the previous study. Right atrial size is normal. The atrial septum is aneurysmal. The interatrial septum grossly appears intact with no obvious evidence for an atrial septal defect. Mitral Valve: MAC. There is moderate mitral annular calcification. There is systolic anterior motion of the chordal apparatus. There is no mitral valve stenosis. There is mild to moderate mitral regurgitation. Compared to the prior echo study, there has been no change in the severity of mitral regurgitation. Aortic Valve: The aortic valve is trileaflet. The aortic valve is moderately calcified. There is mild to moderately reduced leaflet mobility. There is mild to moderate aortic stenosis. The peak aortic velocity is 3.05 m/sec. The aortic valve mean gradient is 19.6 mmHg. The calculated aortic valve area is 1.4 cm2. The peak aortic velocity on the previous exam was 2.67 m/sec. Compared to the prior echo study, there has been an increase in the severity of aortic stenosis. There is mild to moderate aortic regurgitation. Compared to the prior echo study, there has been no change in the severity of aortic regurgitation. Tricuspid Valve: The tricuspid valve is normal. There is no tricuspid stenosis. There is mild tricuspid regurgitation. The right ventricular systolic pressure is estimated to be at least 37. mmHg based on an estimated right atrial pressure of 8 mm Hg. Compared to the prior echo exam, there has been no change in TR severity. Compared to the prior echo exam, there has been an increase in the severity of pulmonary hypertension. Pulmonic Valve: The pulmonic valve is not well visualized. There is no pulmonic valvular stenosis. There is a trace or physiologic amount of pulmonic regurgitation. Great Vessels: The aortic root is normal size. The dimensions of the ascending aorta are normal. The IVC is dilated (diameter is greater than 2.1 cm) yet it collapses greater than 50% with a sniff. This suggests a right atrial pressure of 8 mm Hg. Pericardium/ Pleura There is no pericardial effusion. There is no pleural effusion. MMode/2D Measurements & Calculations LVIDd: 5.0 cm LVOT diam: 2.2 cm LVIDs: 3.1 cm Ao root diam: 3.7 cm FS: 39.2 % asc Aorta Diam: 3.7 cm IVSd: 1.2 cm Ao Arch Diam (Prox Trans): 2.8 cm LVPWd: 0.94 cm LV abrams. diameter/BSA (cm/m^2): 2.8 LV sys. diameter/BSA (cm/m^2): 1.7 LA A2 area: 24.0 cm2 RA long axis: 5.0 cm LA A4 area: 24.2 cm2 RA area: 14.3 cm2 LA length (vol): 6.2 cm RA vol: 34.2 ml LA vol: 80.2 ml RA : 18.9 ml/m2 LA vol index: 44.4 ml/m2 IVC diam: 2.0 cm RVD1 (basal): 3.9 cm RVD2 (mid): 3.3 cm TAPSE: 2.4 cm Doppler Measurements & Calculations Ao V2 max: 304.5 cm/sec LVOT Max Dayron: 99.8 cm/sec Ao V2 mean: 208.0 cm/sec LV V1 max P.0 mmHg Ao max P.1 mmHg LV V1 VTI: 28.9 cm Ao mean P.6 mmHg MIGUEL(I,D): 1.4 cm2 Ao V2 VTI: 78.4 cm MIGUEL(V,D): 1.2 cm2 sev ratio: 0.37 MIGUEL indexed to BSA (cm^2/m^2): 0.76 AI P1/2t: 407.2 msec AI dec slope: 315.9 cm/sec2 MV E max dayron: 82.7 cm/sec TR max dayron: 271.2 cm/sec MV A max dayron: 121.6 cm/sec TR max P.4 mmHg MV E/A: 0.68 PA V2 max: 92.1 cm/sec Med Peak E' Dayron: 3.6 cm/sec PA V2 mean: 61.4 cm/sec E/E' med: 22.8 PA mean P.8 mmHg Lat Peak E' Dayron: 5.3 cm/sec PA pr(Accel): 39.6 mmHg E/E' lat: 15.5 E/e' average: 19.2 MV dec time: 0.31 sec SV(LVOT): 108.3 ml Reading Physician:12:39 PM
== END ==
PROVIDERS: PCP Family Medicine; Referring Provider Internal Medicine Cardiovascular Disease; Visit Provider Internal Medicine Cardiovascular Disease
DX: I08.3 Combined rheumatic disorders of mitral, aortic and tricuspid valves (principal); I48.0 Paroxysmal atrial fibrillation
CPT/HCPCS: 93306

== ENCOUNTER → 2024-12-01 09:37 | Outpatient (CLI) | payer MEDICARE, OTHER, SELFPAY ==
--- NOTE | 2024-12-01 09:38 | DI.RAD.S_ITS ---
PROCEDURE: XR DEXA AXIAL SKELETON INDICATIONS: OSTEOPOROSIS / OSTEOPENIA COMPARISON: [facility], , XR DEXA AXIAL SKELETON, 12/15/2023, 15:11. [facility], , XR DEXA AXIAL SKELETON, 03/14/2021, 13:07. FINDINGS: Lumbar Spine: Bone mineral density 0.816 g/cm2, T score -2.1, statistically decreased by 6%. Left Femoral Neck: Bone mineral density 0.541 g/cm2, T score -2.8. Left Hip: Bone mineral density 0.599 g/cm2, T score -2.8, previously -2.7. Fracture Risk Calculation (when applicable): Not reported due to osteoporosis diagnosis. (T score greater or equal to -1.0 to: NORMAL) (T score from -1.1 to -2.4: OSTEOPENIA) (T score less than or equal to -2.5: OSTEOPOROSIS) IMPRESSION: Osteoporosis. Statistically decreased bone mineralization of the lumbar spine. Follow-up guidelines as follows: Osteoporosis: Consider a repeat DEXA and Vertebral Fracture Assessment (VFA) exam in 2 years or sooner if medically necessary, to reassess this patient's status. Osteopenia: Consider a repeat DEXA in 2-3 years to reassess this patient's status, or if there is a new clinical indication. Normal: Consider a repeat DEXA in 5 years or sooner, or if there is a new clinical indication. All treatment decisions require clinical judgment and consideration of individual patient factors, including patient preferences, comorbidities, previous drug use, risk factors not captured in the FRAX model (e.g., frailty, falls, vitamin D deficiency, increased bone turnover, interval significant decline in bone density ) and possible under- or over-estimation of fracture risk by FRAX. In addition, the NOF Guide recommends that FDA-approved medical therapies be considered in postmenopausal women and men age >= 50 years with a: * Hip or vertebral (clinical or morphometric) fracture * T-score of <=-2.5 at the spine or hip * Ten-year fracture probability by FRAX of >= 3% for hip fracture or >=20% for major osteoporotic fracture. Dictated by: Jesus Teran M.D. on 12/01/2024 at 11:47 Approved by: Jesus Teran M.D. on 12/01/2024 at 12:39
== END ==
LOC: RAD 09:38
PROVIDERS: PCP Family Medicine; Referring Provider Family Medicine; Visit Provider Family Medicine
DX: M81.0 Age-related osteoporosis without current pathological fracture (principal)
CPT/HCPCS: 77080

== ENCOUNTER → 2025-02-11 14:45 | Outpatient (CLI) | payer MEDICARE, OTHER, SELFPAY ==
--- NOTE | 2025-02-11 14:47 | DI.MG.S_ITS ---
MM screening mammo BI: 02/11/2025. BI-RADS: 2 CLINICAL: 74-year old female for bilateral screening mammogram. Tyrer-Cuzick lifetime risk of 4.4%. No personal or first-degree family history of breast cancer. PRIOR EXAMS 12/15/2023, 12/10/2022, 11/14/2022, 07/28/2021, 06/03/2019, 03/10/2018. MAMMOGRAPHY TECHNIQUE: 2D and 3D (tomosynthesis) digital mammographic views obtained, with additional images as needed for full coverage. Current study was also evaluated with a Computer Aided Detection (CAD) system. DENSITY C. The breasts are heterogeneously dense, which may obscure small masses. MAMMOGRAPHY FINDINGS Bilateral: Benign-appearing calcifications noted. There are no suspicious masses, calcifications, or other findings in the breast. IMPRESSION: * No evidence of malignancy with benign findings. RECOMMENDATIONS Bilateral * Annual screening mammography. OVERALL ASSESSMENT CATEGORY BI-RADS-2: Benign. The [employer] [place] [employer] [employer] recommends annual screening mammography beginning at age 40 for women with average risk of breast cancer. ELECTRONICALLY SIGNED: Luke Betancur M.D. on 02/12/2025 at 02:25:59 PM PT Interpreting Station ID: [id number]
== END ==
PROVIDERS: PCP Family Medicine; Referring Provider Family Medicine; Visit Provider Family Medicine
DX: Z12.31 Encounter for screening mammogram for malignant neoplasm of breast (principal)
CPT/HCPCS: 77063; 77067

== ENCOUNTER → 2025-08-29 11:08 | Outpatient (CLI) | payer MEDICARE, OTHER, SELFPAY ==
--- NOTE | 2025-08-29 11:10 | DI.RAD.S_ITS ---
PROCEDURE: XR LUMBAR SPINE 2-3V INDICATIONS: PAIN TECHNIQUE: 3 views of the lumbar spine were acquired. COMPARISON: None. FINDINGS: Bones: 5 [id number] vertebrae are present. Diffuse osseous demineralization with lumbar levoscoliosis centered at L2-3. Multilevel moderate to severe disc space narrowing greatest in the superior to mid lumbar spine with multilevel advanced facet arthrosis. Moderate degenerate arthrosis of the bilateral sacroiliac joints. No vertebral body compression fractures. No suspicious bony lesions. Soft tissues: Overlying bowel gas pattern is normal. No suspicious soft tissue calcifications. IMPRESSION: No acute compression deformity. Lumbar levoscoliosis with multilevel moderate to severe advanced spondylosis. Dictated by: Lakhwinder Levy M.D. on 08/29/2025 at 13:49 Approved by: Lakhwinder Levy M.D. on 08/29/2025 at 13:50
--- NOTE | 2025-08-29 11:10 | DI.RAD.S_ITS ---
PROCEDURE: XR KNEE LT 3V INDICATIONS: PAIN TECHNIQUE: 3 views of the knee were acquired. COMPARISON: None. FINDINGS: Mild tricompartmental degenerative arthrosis. Bones: No fractures or dislocations. No suspicious bony lesions. Soft tissues: Small joint effusion. No suspicious soft tissue calcifications. IMPRESSION: No acute bony abnormality or significant effusion. Dictated by: Lakhwinder Levy M.D. on 08/29/2025 at 13:49 Approved by: Lakhwinder Levy M.D. on 08/29/2025 at 13:49
== END ==
PROVIDERS: PCP Family Medicine; Referring Provider Family Medicine; Visit Provider Family Medicine
DX: M17.12 Unilateral primary osteoarthritis, left knee (principal); M47.816 Spondylosis without myelopathy or radiculopathy, lumbar region; M41.9 Scoliosis, unspecified; M25.462 Effusion, left knee; M25.562 Pain in left knee; M54.50 Low back pain, unspecified
CPT/HCPCS: 72100; 73562